=== PATIENT | female | born 1935 | race Caucasian/White ===

== ENCOUNTER 2018-11-05 10:52 | Emergency (ER) | payer SELFPAY ==
[2018-11-05] MEDS: ACETAMINOPHEN 325 MG TAB PO (11:22)
== END 2018-11-05 11:20 | disposition home or self-care (01) ==
LOC: FTE 10:52
DX: M54.5 Low back pain (principal); I10 Essential (primary) hypertension; E11.9 Type 2 diabetes mellitus without complications
CPT/HCPCS: 72100; 99283-25